=== PATIENT | female | born 1940 | race Caucasian/White ===

== ENCOUNTER 2020-02-14 09:33 | Emergency (ER) | payer MEDICARE, SELFPAY ==
[2020-02-14 09:34] VITALS: BP 171/91; PULSE 63; RESP 20; TEMP 37; O2SAT 97; BMI 25.1
--- NOTE | 2020-02-14 09:37 | HMH.EDFALL ---
ED Disposition Clinical Impression: C1 cervical fracture Qualifiers: Encounter type: initial encounter Fracture type: closed Fracture morphology: posterior arch Fracture alignment: nondisplaced Qualified Code(s): S12.031A - Nondisplaced posterior arch fracture of first cervical vertebra, initial encounter for closed fracture Concussion Qualifiers: Encounter type: initial encounter Loss of consciousness presence/duration: without LOC Qualified Code(s): S06.0X0A - Concussion without loss of consciousness, initial encounter Disposition: Home, Self-Care Condition on Discharge: Good Instructions: Closed Head Injury Additional Instructions: Call Monday to neurosurgery for fu appt. Phone number to call is [phone]. Prescriptions: Tramadol HCl [Tramadol 50mg Tab] 50 mg PO BID #10 tab Referrals: Sandy Loredo [Primary Care Provider] - Time of Disposition: 13:19 - Critical Care Critical Care Time: No Attestation: On , the high probability of a clinically significant, sudden or life threatening deterioration of the following system(s) required my full and direct attention, intervention and personal management. The time I documented below is in addition to time spent performing reported procedures but includes the following listed in this critical care notation. Medical Decision Making - Shamir Inquiry Pt receiving controlled substance: Yes Shamir was queried for this patient: No Reason not queried -: Emergent pt cond-no time Risks and benefits of using a controlled substance: were discussed with pt by me Vital Signs: 02/14/20 09:34 02/14/20 10:54 02/14/20 11:00 Temperature 98.6 F Temperature Source Oral Pulse Rate [Left Radial] 63 65 60 Respiratory Rate 20 18 18 Blood Pressure [Right Arm] 171/91 H 176/82 H 179/84 H Blood Pressure Mean [Right Arm] 117 113 115 Blood Pressure Source [Right Arm] Automatic Cuff Automatic Cuff Automatic Cuff Blood Pressure Position [Right Arm] Sitting Supine Supine 02 Sat by Pulse Oximetry 97 96 95 Oxygen Delivery Method Room Air - Lab Data Lab Results 02/14/20 09:50: WBC 6.7, RBC 4.53, Hgb 14.0, Hct 42.1, MCV 93.0, MCH 30.8, MCHC 33.2, RDW 13.9, Plt Count 212, MPV 9.4, Neut % (Auto) 62.8, Lymph % (Auto) 28.8, [place] % (Auto) 4.5, Eos % (Auto) 2.5, Baso % (Auto) 1.4, Neut # (Auto) 4.2, Lymph # (Auto) 1.9, [place] # (Auto) 0.3, Eos # (Auto) 0.2, Baso # (Auto) 0.1 02/14/20 09:50: Sodium 138, Potassium 4.4, Chloride 105, Carbon Dioxide 27, Anion Gap 10.4, BUN 11, Creatinine 0.60, Estimated Creat Clear 51, Estimated GFR 96, Est GFR ( Amer) 116, Glucose 116 H, Calcium 10.0, Total Bilirubin 0.8, AST 32, ALT 19, Alkaline Phosphatase 84, Total Protein 7.7, Albumin 4.4, Globulin 3.3 H, Albumin/Globulin Ratio 1.3 Result diagrams: 02/14/20 09:50 02/14/20 09:50 - Radiology Data #2 Image(s): C-Spine Image Reviewed: Yes I reviewed the patient's radiology results, Yes I reviewed the patient's radiology image C1 fracture - CT Data CT Scan: Head Time Received: 12:20 Preliminary Findings: Normal/NAD - ECG Data Tracing #1 Normal sinus rhythm, 65 bpm, no ST elevation or depression, normal intervals, no ectopy. ECG initial impression date: 02/14/20 ECG initial impression time: 10:10 Normal Sinus Rhythm: Yes Medical Decision Narrative: 79yo F evaluated after ground-level fall. No reported LOC. Patient is in no acute distress on initial presentation. Patient is sent for CT of the head and neck. EKG unremarkable as reported above. Patient CT of the head was unremarkable. CT of the C-spine showed a C1 fracture. Patient was placed in a neck collar. Patient complained of pain lower in her thoracic spine and therefore went for CT scan of her T-spine. This scan was largely unremarkable except for possible mild wedging. Patient reports her symptoms were improved by being placed in a c-collar. [facility] was called for follow-up with neurosurgery gi
[2020-02-14 09:42] VITALS: BMI 25.0
--- NOTE | 2020-02-14 10:03 | CT_ITS ---
PROCEDURE: CT HEAD/BRAIN W CON CLINICAL INDICATION: fall Head injury with headache/pain, contusion, abrasion or hematoma COMPARISON: No exams were available for comparison TECHNIQUE: IV Contrast: 100ML Isovue 370 Axial images obtained. All CT scans at the facility use one or more dose reduction, viz: automated exposure control, ma/kV adjustment per patient size (including targeted exams where dose is matched to indication, i.e. head), or iterative reconstruction technique. FINDINGS: No midline shift, mass effect, intracranial hemorrhage, hydrocephalus, or extra-axial fluid collection is evident. There is generalized atrophy with hypoattenuation of the periventricular white matter consistent with microangiopathic changes.. There is bilateral frontal scalp contusions. The calvarium has an unremarkable appearance. No mastoid effusion. No sinus air-fluid level. Laceration right frontal area of the scalp IMPRESSION: No acute intracranial findings. Frontal scalp contusion/hematoma with laceration Dictated by: Ronal Hua MD 02/14/2020 10:50 Ronal Hua MD in [place] 02/14/2020 10:50
[2020-02-14 10:05] LABS: Basophils # 0.1 K/mm3 (0-0.2); Basophils % 1.4 % (0.1-2.0); Eosinophils # 0.2 K/mm3 (0.0-0.4); Eosinophils % 2.5 % (0.1-12.0); Hematocrit 42.1 % (37.0-47.0); Lymphocytes # 1.9 K/mm3 (0.7-4.5); Lymphocytes % 28.8 % (10-50); Mean Corpuscular HGB Conc 33.2 g/dL (31.8-35.4); Mean Corpuscular Hemoglobin 30.8 pg (27.0-31.2); Mean Platelet Volume 9.4 fl (7.4-10.4); Monocytes # 0.3 K/mm3 (0.1-1.0); Monocytes % 4.5 % (1.7-9.3); Neutrophils # 4.2 K/mm3 (1.8-7.8); Neutrophils % 62.8 % (37.0-80.0); Platelet Count 212 K/mm3 (142-424); Red Blood Count 4.53 M/mm3 (4.20-5.40); Red Cell Distribution Width 13.9 % (11.5-17.5); White Blood Count 6.7 K/mm3 (4.8-10.8)
--- NOTE | 2020-02-14 10:05 | ECG_ITS ---
APPROVED REPORT Exam: Resting ECG HR:65 bpm ECG Measurements Heart Rate 65 AXES MS 164 P -27 QRSd 80 QRS -23 QT 404 T 3 QTc 420 Conclusion Normal sinus rhythm Minimal voltage criteria for LVH Late R wave progression Abnormal ECG Electronically signed by : Eloy Tapia, 02/15/2020 07:39:42
[2020-02-14 10:06] LABS: Chloride 105 mmol/L (98-107); Sodium 138 mmol/L (136-145)
[2020-02-14 10:07] LABS: Potassium 4.4 mmoL/L (3.5-5.1)
[2020-02-14 10:09] LABS: Alanine Aminotransferase 19 U/L (12-78); Albumin Level 4.4 g/dl (3.5-5.0); Albumin/Globulin Ratio 1.3 (1.1-1.8); Alkaline Phosphatase 84 U/L (38-126); Anion Gap 10.4 mEq/L (5-15); Aspartate Amino Transferase 32 U/L (14-36); Bilirubin,Total 0.8 mg/dl (0.2-1.3); Blood Urea Nitrogen 11 mg/dl (7-17); Carbon Dioxide 27 mmol/L (22.0-30.0); Creatinine Clearance Estimated 51 mL/min (50-200); Estimated Glomerular Filt Rate 96 ml/min (>60); GFR (African American) 116 ML/MIN (>60); Globulin 3.3 g/dL (1.3-3.2); Total Protein,Serum 7.7 g/dl (6.3-8.2)
[2020-02-14 10:10] LABS: Glucose 116 mg/dl (74-100)
--- NOTE | 2020-02-14 10:13 | CT_ITS ---
PROCEDURE: CT CERVICAL SPINE WO CON CLINICAL INDICATION: fall Neck injury with pain, contusion/abrasion or hematoma, cervical sprain/strain the COMPARISON: No exams were available for comparison TECHNIQUE: Axial images obtained with sagittal and coronal reformats. All CT scans at the facility use one or more dose reduction, viz: automated exposure control, ma/kV adjustment per patient size (including targeted exams where dose is matched to indication, i.e. head), or iterative reconstruction technique. Axial spiral CT scanning performed of the cervical spine beginning at the base of the skull and continuing to the upper T-spine. 3-D multiplanar reconstruction with 3-D manipulation of volumetric data set in image rendering was completed by the radiologist and/or technologist with the supervision of the radiologist on independent workstation. FINDINGS: There is a nondisplaced fracture involving the posterior and right aspect the arch of C1. C2-C3: Unremarkable. C3-C4: Degenerative disc disease with central disc osteophyte complex with canal stenosis. C3-C4: 5 mm anterolisthesis of C3 with degenerative disc disease with endplate hypertrophy and facet and uncovertebral hypertrophy with bilateral lateral recess and foraminal narrowing. C5-C6: 3 mm anterolisthesis of C5 with degenerative disc disease and bilateral foraminal lateral recess narrowing. C6-C7: Degenerative disc disease. C7-T1: Degenerative disc disease. Lung apices are clear. There is slight decrease in height anteriorly T3-T4 age indeterminate. Degenerative disc disease and anterior osteophytes are present at those levels. Lung apices are clear IMPRESSION: 1. Nondisplaced fracture of the arch of C1 on the right 2. Multilevel cervical spondylosis. Please see above for detailed description at each level. 3. Minimal loss of height anteriorly of T3 and T4 age indeterminate and could be better evaluated with MRI. No retropulsion. Dictated by: Ronal Hua MD 02/14/2020 10:54 Ronal Hau MD in [place] 02/14/2020 10:54
[2020-02-14 10:54] VITALS: BP 176/82; PULSE 65; RESP 18; O2SAT 96
[2020-02-14 11:00] VITALS: BP 179/84; PULSE 60; RESP 18; O2SAT 95
--- NOTE | 2020-02-14 11:06 | CT_ITS ---
PROCEDURE: CT THORACIC SPINE WO CON CLINICAL HISTORY: fall, pain Posttraumatic pain COMPARISON: CT CT CERVICAL SPINE WO CON from 02/14/2020 TECHNIQUE: Axial images obtained with sagittal and coronal reformats. All CT scans at the facility use one or more dose reduction, viz: automated exposure control, ma/kV adjustment per patient size (including targeted exams where dose is matched to indication, i.e. head), or iterative reconstruction technique. FINDINGS: There is normal alignment. There is minimal wedging T3 and T4 with minimal compression of the superior endplate which could represent mild acute compression change.. There is also minimal wedge contour T5-T6 T7 and T8. These findings could be chronic. There are no previous studies available for comparison. There is no retropulsion. There is mild multilevel degenerative disc disease with decrease in the disc spaces and disc desiccation with anterior osteophytes. There are mild atelectatic changes. Coronary artery calcifications are present. IMPRESSION: 1. Minimal wedging T3 and T4 which may be acute without retropulsion. 2. Minimal wedging T5-T6 T7 and T8 which could be chronic. MRI may confirm. No retropulsion. 3. Thoracic spondylosis Dictated by: Ronal Hua MD 02/14/2020 12:08 Ronal Hua MD in [place] 02/14/2020 12:08
--- NOTE | 2020-02-14 12:30 | PC.NURSE ---
wants pt to fu with neurosurgery at . Per [facility] scheduling is out until Monday. Phone number given so pt can call Monday to get appt. [phone]
[2020-02-14 13:31] VITALS: BP 179/84; PULSE 60; RESP 18; TEMP 36.7; O2SAT 95
== END 2020-02-14 13:33 | disposition home or self-care (01) ==
PROVIDERS: Emergency Provider Family Medicine; PCP Family Medicine
DX: S06.0X0A Concussion without loss of consciousness, initial encounter (principal); S12.031A Nondisplaced posterior arch fracture of first cervical vertebra, initial encounter for closed fracture; W10.9XXA Fall (on) (from) unspecified stairs and steps, initial encounter; Y92.019 Unspecified place in single-family (private) house as the place of occurrence of the external cause
CPT/HCPCS: 70460; 72125; 72128; 80053; 85025; 93005; 99283

== ENCOUNTER → 2021-08-19 13:38 | Outpatient (CLI) | payer MEDICARE, SELFPAY ==
--- NOTE | 2021-08-19 13:43 | XR_ITS ---
FINAL REPORT CLINICAL HISTORY: hip pain FINDINGS: LEFT HIP Three views were obtained. There is no acute fracture or dislocation. There are moderate degenerative changes of the left hip. There are moderate and severe degenerative changes in the lower lumbar spine. No soft tissue abnormality is identified. IMPRESSION: Degenerative changes as detailed above. Reviewed, Interpreted and Dictated by Colton Guerrero III, MD Transcribed by Danelle Espinoza Authenticated and [facility]
== END ==
PROVIDERS: PCP Family Medicine; Visit Provider Orthopaedic Surgery
DX: M25.552 Pain in left hip (principal)
CPT/HCPCS: 73502

== ENCOUNTER → 2021-08-28 08:47 | Outpatient (CLI) | payer MEDICARE, SELFPAY ==
--- NOTE | 2021-08-28 08:47 | MR_ITS ---
PROCEDURE INFORMATION: Exam: MR Lumbar Spine Without Contrast Exam date and time: 08/28/2021 9:16 AM Age: 81 years old Clinical indication: Low back pain TECHNIQUE: Imaging protocol: Magnetic resonance imaging of the lumbar spine without contrast. COMPARISON: CT THORACIC SPINE WO CON 02/14/2020 11:29 AM FINDINGS: Renal cyst bilaterally signal intensity within the bone marrow grossly normal. conus terminates at the mid aspect of L1. Soft tissues are unremarkable. Diffuse degenerative disc disease throughout the lumbar spine. Anterolisthesis of L5 with respect to S1 of approximately 7 mm and L4 with respect to L5 of approximately 5 mm. Severe neural foraminal narrowing L5-S1 and L4-L5 particularly on the left Reactive degenerative endplate changes L5-S1 Mild levocurvature centered at approximately L2 or L3. T11-T12: Central canal and neural foramina are widely patent. L1-L2: Broad-based annular disc bulge effaces the anterior aspect of the thecal sac mildly so. Disc lateralizes to the right and left. L2-L3: Broad-based annular disc bulge effaces the anterior aspect of the thecal sac mildly so. Right lateral disc herniation with disc extending into the anterolateral recess with severe narrowing of the right neural foramina L3-L4: Moderate narrowing of the central canal secondary to facet hypertrophic changes, ligamentum flavum hypertrophic changes, and a broad-based annular bulge. Disc lateralizes to the right with paucity of fat about the exiting nerve root L4-L5: Moderate degree of central canal narrowing secondary to facet hypertrophic changes, ligamentum flavum hypertrophic changes, and a broad-based annular bulge. Disc lateralizes to the left greater than right with paucity of fat about the exiting nerve root. L5-S1: Disc and or osteophytic complex anteriorly. Disc lateralizes to the left greater than right with severe narrowing of the left neural foramina IMPRESSION: Diffuse degenerative disc disease throughout the lumbar spine. Multilevel central canal narrowing. See above.
== END ==
PROVIDERS: PCP Family Medicine; Visit Provider Orthopaedic Surgery
DX: M54.32 Sciatica, left side (principal); M54.50 Low back pain, unspecified
CPT/HCPCS: 72148; 76376

== ENCOUNTER 2021-10-28 17:00 | Outpatient (RCR) | payer MEDICARE, SELFPAY ==
--- NOTE | 2021-08-30 18:07 | HMH.PTOPEV ---
PT Outpatient Evaluation Rehab PT Outpatient Evaluation Start: 08/30/21 15:47 Freq: Status: Active Protocol: Document 08/30/21 15:47 VINCE (Rec: 08/30/21 18:06 VINCE [id number]) Electronically Signed By Antonieta Clarkestephaniabrent, JAVIER 08/30/21 15:47 Outpatient Therapy Subjective History Subjective History Pt is an 81 y/o female that reports chronic low back pain >20 years ago. Pt reports she did a lot of lifting in November with worsened pain leading to decreased activity. Pt states a month ago was unable to stand (<15 min) or walk for prolonged periods due to pain. Pt states her leg starts aching with initial symptoms in the posterior left hip and radiates down the lateral aspect of the left leg into the calf/foot. Pt states intermittently she feels like warm water is running down her leg into her whole foot and states her foot feels numb /heavy. She states this used to only happen during standing but 2 months ago started happening while sitting as well. Pt states her back pain is worse in the mornings and is cautious with transfers/ activities. Pt states leg pain is worse with standing/ walking improved with bending such as to clean her cat litter box. Pt had a hip xray at [facility] on 08/19/2021 showing moderate degenerative changes of the left hip and moderate- severe degenerative changes of the lumbar spine without acute findings. Pt went to her doctor on 08/25 and received a cortisone injection in her left hip with report of a lot of relief but still has the burning sensation down her leg intermittently. Pt states she received an MRI of her low
--- NOTE | 2021-09-28 18:14 | HMH.RHREAS ---
Rehab Reassessment Rehab OP Re-assessment Start: 09/28/21 16:59 Freq: Status: Active Protocol: Document 09/28/21 16:59 VINCE (Rec: 09/28/21 18:13 VINCE [id number]) Electronically Signed By Antonieta Walton, PT 09/28/21 16:59 Rehab Re-assessment Subjective Subjective Pt reports she feels that she has improved 80% since starting PT. Pt reports intensity of paresthesia and pain has improved since starting PT with pain at worse reported as 4-5/10 within the last week. Pt reports she is able to sleep on her left side now without pain as well. Pt reports she continues to have pain with prolonged walking but occurrences of this has decreased since starting PT. Pt reports she is still unable to cook/prepare a full meal without resting due to back pain. Pt reports she returns to Dr. Yepez on 10/21/21 for a followup visit. Objective Objective Notes Lumbar AROM: flex 90, ext 18, LLF 15, RLF 10 Hip AROM: right ER/IR=30/25 left ER/IR=25/25 LE MMT: hip flex 4/5, hip abd/ ext 4-/5, hip IR/ER 4+/5, knee flex/ext 4+/5, ankle DF 5/5 Assessment Progress Assessment Progressing as Expected Assessment Notes Pt has attended 8 PT visits consisting of LE stretching/ strengthening, aerobic exercise, neural glides, manual therapy, and modalities such as iontophoresis. Pt met all STG and demonstrates improved lumbar/hip range of motion, lower extremity strength, tenderness to palpation and subjective report of pain/paresthesia. Pt would continue to benefit from skilled PT to further improve functional activity tolerance to assist with return to PLOF. Patient goals met
--- NOTE | 2021-10-28 18:23 | HMH.RHREAS ---
Rehab Reassessment Rehab OP Re-assessment Start: 09/28/21 16:59 Freq: Status: Active Protocol: Document 10/28/21 16:47 KORIBERT (Rec: 10/28/21 18:23 VINCE [id number]) E-signed By Antonieta Walton PT Rehab Re-assessment Subjective Subjective Pt reports she feels that she has improved 40% since starting PT. PT reports increased pain and buzzing in the left leg ~1 month ago. Pt reports she continues to have increased pain & paresthesia with standing <10 minutes and walking ~15 minutes. Pt reports she also has pain lifting her cat who weighs ~ 5lbs and doing yard work. Pt reports pain at worse as 9/10 yesterday night. Objective Objective Notes Antalgic gait with decreased WB on the LLE Lumbar AROM: flex 80, ext 20, LF 10 Hip AROM: L IR 20, ER 30 LE MMT: 4+/5 Assessment Progress Assessment Slower Than Expected Assessment Notes Pt has attended 17 PT visits consisting of LE stretching/ strengthening, aerobic exercise, neural glides, manual therapy, and modalities such as TENS and iontophoresis. Pt reports regression of progress with only 40% improvement compared to 80% upon last re-evaluation and increased pain severity. Pt continues to have paresthesia and pain with standing/walking only 5-15 minutes without change since initial evaluation. Pt has met maximal PT potential and was encouraged to continue independent HEP and consider other treatment options presented by orthopedic flight security specialist. Patient goals met LT/13 Goals Not Met TTP, pain severity, ADL & walking/standing tolerance, lifting Revised
== END 2021-10-28 17:05 | disposition home or self-care (01) ==
LOC: PT 17:00
PROVIDERS: PCP Family Medicine; Visit Provider Orthopaedic Surgery
DX: M25.552 Pain in left hip (principal); M16.12 Unilateral primary osteoarthritis, left hip; M70.62 Trochanteric bursitis, left hip; M47.816 Spondylosis without myelopathy or radiculopathy, lumbar region; M54.32 Sciatica, left side
CPT/HCPCS: 97010; 97014; 97033; 97110; 97112; 97140; 97163; 97164; 97530; 97535; G0283

== ENCOUNTER 2022-09-12 08:00 | Outpatient (RCR) | payer MEDICARE, SELFPAY | END 2022-09-12 08:05 | disposition home or self-care (01) | LOC: PT 08:00 | PROVIDERS: PCP Family Medicine; Visit Provider Orthopaedic Surgery | DX: M43.16 Spondylolisthesis, lumbar region (principal) | CPT/HCPCS: 97010; 97014; 97110; 97163; 97164; 97530; G0283 ==

== ENCOUNTER 2025-01-20 12:50 | Day surgery (SDC) | payer MEDICARE, SELFPAY ==
--- NOTE | 2025-01-10 13:19 | EXP.HP ---
History of Present Illness *Admission Date: 01/20/25 *History of present illness: Mrs. Arriaga is an 84-year-old female who is here for diagnostic colonoscopy. The patient does report some change in bowel habits with some postprandial bowel frequency and small caliber stools. She does feel incomplete defecation. The patient's last colonoscopy was 15+ years ago and she has had polyps previously. The examination is deemed medically necessary for diagnostic colonoscopy. The patient has been seen, interviewed and examined prior to the procedure by both myself and the anesthesia provider. [facility] Disclaimer: The information contained in this section may have been updated after the patient was seen, as this information can be updated by other users. Medical History (Updated 01/20/25 @ 13:18 by Marta Cuellar RN) Bladder prolapse Depression Scoliosis Arthritis Hypertension Family History Mother Cancer Father Cancer Sister Cancer Social History Smoking Status: Never smoker alcohol intake: never substance use type: denies use current occupational status: employed Travel in the last 8 weeks?: None caffeine: Yes Have you lived/traveled outside [place] in past 30 days?: No Contact w/someone who lives/traveled outside [place] past 30 days?: No Exposure to someone with infectious disease in past 14 days?: No Do you have a fever (greater than 100.4 F or 38 C)?: No Have you tested positive for COVID-19?: No Exposed to someone with COVID-19 in past 14 days?: No Do you have a sore throat?: No Do you have a cough?: No Do you have any weakness?: No Are you experiencing any nausea/vomitting?: No Do you have any diarrhea?: No Are you experiencing any unusual bleeding?: No Do you have any muscle aches/pain?: No Do you have any abdominal pain?: No Are you experiencing loss of taste or smell?: No Other Medical History Have you received the Flu Vaccine for this season: No Have you received the Pneumonia Vaccine: No Review of Systems Review of Systems Review of systems (narrative): Negative *Cardiovascular Comments: Negative *Gastrointestinal Comments: Negative *Genitourinary Comments: Negative *Musculoskeletal Comments: Negative *Neurologic Comments: Negative Meds Home Medications and Allergies Home Medications ?Medication ?Instructions ?Recorded ?Confirmed ?Type timolol maleate (PF) 0.5 % eye 1 each ophthalmic (eye) DAILY eyes 02/14/20 01/26/22 History drops in a dropperette estradiol 0.01% (0.1 mg/gram) 1 g vaginal WEEKLY 08/25/21 01/20/25 History vaginal cream metoprolol succinate 25 mg 25 mg PO DAILY 08/25/21 01/20/25 History tablet,extended release 24 hr sodium,potassium,mag sulfates 17.5 See Rx Instructions PO .COMPLEX 01/06/25 Rx gram-3.13 gram-1.6 gram oral soln #354 mL (Suprep Bowel Prep Kit) potassium 20 mg chewable tablet 20 mg PO BID 01/14/25 01/20/25 History sertraline 25 mg tablet 0 mg PO DAILY 01/20/25 01/20/25 History New Prescriptions to Start Prescriptions: Allergies Allergy/AdvReac Type Severity Reaction Status Date / Time No Known Allergies Allergy Verified 01/20/25 13:07 Exam *Routine HEENT Exam Head: Present normocephalic Eye: Present EOMI and PERRL ENT: Present mucous membranes moist *Routine Neck Exam Neck: Present supple *Routine Respiratory Exam Respiratory: Present CTA bilaterally *Routine Cardiovascular Exam Cardiovascular: Present RRR *Routine Abdominal Exam Abdominal: Present soft and normoactive bowel sounds; Absent tenderness *Routine Rectal Exam Rectal:: deferred *Routine Genitalia Exam Genitalia:: deferred *Routine Extremities Exam Extremities: Absent cyanosis, clubbing or edema *Routine Skin Exam Skin: Present warm; Absent rash *Routine Neurological Exam Neurological: Present alert and oriented X3 Assessment and Plan *Assessment and plan (1) Change in bowel habits: Status: Acute Category: Medical Code(s): R19.4 - Change in bowel habit (2) Personal history of colon polyps, unspecified: Status: Acute Category: Medical Code(s): Z86.0100 - Personal history of colon polyps, unspecified Plan A/P: 1. Change in bowel habits and prior personal history of colon polyps with last colonoscopy 15+ years ago is the preprocedural diagnosis. The patient will be anesthetized/sedated using MAC sedation. The patient has been seen and examined. Cardiac and lung assessment prior to the examination is stable. Proceed with planned diagnostic colonoscopy.
[2025-01-14 12:41] VITALS: BMI 28.0
--- NOTE | 2025-01-20 07:13 | [facility].PROCNOTE ---
[facility] Procedure Note Date: 01/20/25 Time: 14:32 Procedure Note:: Colonoscopy Procedure Report: Colonoscopy with cold snare polypectomy and cold biopsies Endoscopist: Richie Sy II, MD Referring physician: Vernon Canseco MD Date of Procedure: January 20, 2025 Equipment: Olympus [id number] adult colonoscope Sedation: MAC sedation Indication: Mrs. Arriaga is an 84-year-old female who is here for diagnostic colonoscopy. The patient does report some change in bowel habits with some postprandial bowel frequency and small caliber stools. This was worse over the summer months and she would have fecal urgency, frequency and fecal incontinence. She was afraid to eat outside of the home and would always have to know where the bathroom was located. She does feel incomplete defecation. This improved at the first portion of December. The patient still has bowel frequency and smaller caliber stools. There is more formed. She reports no gassiness, bloating, cramps or abdominal discomfort. She reports no blood or mucus with her bowel movements. The patient's last colonoscopy was 15+ years ago and she has had polyps previously. The examination is deemed medically necessary for diagnostic colonoscopy. Procedure: Prior to the procedure, a history and physical exam was performed, and patient's medications and allergies were reviewed. The risks, benefits and alternatives of the sedation and procedure were discussed with the patient. All questions were answered and informed consent was obtained. The patient was brought to the procedure room. Patient identification and proposed procedure were verified by the physician and the nurse. The patient was placed in a left lateral decubitus position and the scope was passed under direct vision. Throughout the procedure, the patient's blood pressure, pulse, and oxygen saturations were monitored continuously. The colonoscopy was accomplished without difficulty. The patient tolerated the procedure well. Findings: On digital rectal examination there was normal rectal tone. There were no external hemorrhoids. The colonoscope was introduced through the anal canal to the rectum and advanced to the cecum. The ileocecal valve and appendiceal orifice were identified. The scope was advanced a short distance into the ileum which appeared grossly normal. The scope was then withdrawn into the colon. There were 4 colon polyps (cecum x 3 (4, 7 and 9 mm) and transverse x 1 (5 mm)). These were all removed via cold snare polypectomy. The remaining cecum, ascending and transverse colon and mucosa were grossly normal. Random cold biopsies were taken from the right colon to rule out microscopic colitis. There were extensively scattered diverticuli throughout the descending and sigmoid colon (LEFT colon). The rectum itself was normal. Upon retroflexion within the rectum there were grade 1 internal hemorrhoids. The preparation was fair throughout with [place] Preparation Score of 7 out of 9. The cecal time was 15 minutes. Impression: 1. Colonic polyps x 4 (4, 5, 7 and 9 mm) 2. Extensive left-sided diverticulosis 3. Grade 1 internal hemorrhoids Plan: I will follow-up the polyp histology and random biopsies. If the random biopsies show evidence of microscopic colitis, I would consider treatment with budesonide. If the biopsies are normal, I would encourage bulking FiberCon 2 tablets by mouth every morning and increase to twice daily. I will discuss the findings with the patient and family.
[2025-01-20 13:06] VITALS: BP 158/88; PULSE 80; RESP 16; TEMP 36.9; O2SAT 97
--- NOTE | 2025-01-20 13:18 | ECG_ITS ---
APPROVED REPORT Exam: Resting ECG HR:78 bpm ECG Measurements Heart Rate 78 AXES IA 155 P -20 QRSd 94 QRS -35 QT 382 T 19 QTc 415 Conclusion SINUS RHYTHM LEFT AXIS DEVIATION [QRS AXIS < -30] MINIMAL VOLTAGE CRITERIA FOR LVH, CONSIDER NORMAL VARIANT [MEETS CRITERIA IN ONE OF: R(aVL), S(V1), R(V5), R(V5/V6)+S(V1)] POSSIBLE ANTERIOR MYOCARDIAL INFARCTION , PROBABLY OLD [30 ms Q WAVE IN V3/V4, OR R < 0.2 mV IN V4] ABNORMAL ECG UNCONFIRMED REPORT Electronically signed by : Eloy Tapia MD 01/21/2025 09:12:04
[2025-01-20] MEDS: LACTATED RINGERS 1000ML 1,000 ML 50 ML IV (13:30)
--- NOTE | 2025-01-20 13:51 | P.PNANES_ITS ---
[facility] Disclaimer: The information contained in this section may have been updated after the patient was seen, as this information can be updated by other users. Medical History (Updated 01/20/25 @ 13:18 by Marta Cuellar RN) Bladder prolapse Depression Scoliosis Arthritis Hypertension Family History Mother Cancer Father Cancer Sister Cancer Social History Smoking Status: Never smoker alcohol intake: never substance use type: denies use current occupational status: employed Travel in the last 8 weeks?: None caffeine: Yes Have you lived/traveled outside [place] in past 30 days?: No Contact w/someone who lives/traveled outside [place] past 30 days?: No Exposure to someone with infectious disease in past 14 days?: No Do you have a fever (greater than 100.4 F or 38 C)?: No Have you tested positive for COVID-19?: No Exposed to someone with COVID-19 in past 14 days?: No Do you have a sore throat?: No Do you have a cough?: No Do you have any weakness?: No Are you experiencing any nausea/vomitting?: No Do you have any diarrhea?: No Are you experiencing any unusual bleeding?: No Do you have any muscle aches/pain?: No Do you have any abdominal pain?: No Are you experiencing loss of taste or smell?: No [facility] Anesthesia Checklist Patient Identification Patient Identification: Arm Band and Family Structural Data Admitted From: Home Planned Operative Procedure/s: Colonoscopy Consent for Planned Operative Procedure(s) Verified: Yes Verified Documents: Surgical Consent and History and Physical Additional verifications Patient : No Anesthesia Reactions: No Hx Blood Transfusions: No Blood Transfusion Reaction: No Cephalosporin Allergy: No Previous Colonoscopy: Yes Airway Assessment Mallampati Score:: Class I Neurological Assessment Level of Consciousness: Awake, Alert, Appropriate and Follows Commands Hx Seizures: No Anesthesia Plan Anesthesia Risk discussed: Yes ASA Class: II Anesthesia Type: MAC
[2025-01-20 14:35] VITALS: BP 100/61; PULSE 69; RESP 15; TEMP 36.4; O2SAT 97
[2025-01-20 14:45] VITALS: BP 114/61; PULSE 69; RESP 16; TEMP 36.4; O2SAT 100
[2025-01-20 14:55] VITALS: BP 131/75; PULSE 71; RESP 17; TEMP 36.4; O2SAT 98
[2025-01-20 15:05] VITALS: BP 133/80; PULSE 71; RESP 17; TEMP 36.4; O2SAT 97
== END 2025-01-20 15:31 | disposition home or self-care (01) ==
PROVIDERS: Visit Provider Internal Medicine Gastroenterology
PROC: 0DJD8ZZ Inspection of Lower Intestinal Tract, Via Natural or Artificial Opening Endoscopic (ICD-10-PCS; CPT 45378; principal; 2025-01-20 14:30)
DX: D12.0 Benign neoplasm of cecum (principal); D12.3 Benign neoplasm of transverse colon; K64.0 First degree hemorrhoids; K57.30 Diverticulosis of large intestine without perforation or abscess without bleeding; F32.A Depression, unspecified; M19.91 Primary osteoarthritis, unspecified site; I10 Essential (primary) hypertension; R19.4 Change in bowel habit; Z86.0100 Personal history of colon polyps, unspecified; Z79.899 Other long term (current) drug therapy; Z79.890 Hormone replacement therapy
CPT/HCPCS: 45380; 45385; 88305; 93005; J2003; J2704; J7120